=== PATIENT | female | born 1990 | race Caucasian/White ===

== ENCOUNTER 2017-03-06 21:08 | Emergency (ER) | payer BC ==
[~2017-03-06] VITALS: Ht 160 cm; Wt 53.5 kg
[2017-03-06 21:08] VITALS: BP_SYST 121
--- NOTE | 2017-03-06 21:58 | NUR ---
CALLED PT TO BE PLACED IN HALLWAY AND NO ANSWER.
--- NOTE | 2017-03-06 22:32 | NUR ---
CALLED PT TO BE PLACED IN HALLWAY AND NO ANSWER
--- NOTE | 2017-03-06 22:47 | NUR ---
CALLED PT TO BE PLACED IN BED FOR THE 3RD TIME AND NO ANSWER. PT LWBS
== END 2017-03-06 22:47 | disposition left against medical advice (07) ==
LOC: SED 21:08
DX: R50.9 Fever, unspecified (principal); Z53.21 Procedure and treatment not carried out due to patient leaving prior to being seen by health care provider